=== PATIENT | female | born 2000 | race Caucasian/White ===

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

== ENCOUNTER 2020-04-02 17:33 | Emergency (ER) | payer OTHER ==
--- NOTE | 2020-04-02 17:42 | PDOC ---
Rapid Medical Evaluation Time Seen by Provider: 04/02/20 17:36 Medical Evaluation: Allergies Allergy/AdvReac Type Severity Reaction Status Date / Time No Known Allergies Allergy Verified 09/27/17 02:33 04/02/20 17:42 I have performed a brief in-person evaluation of this patient. CC: nausea and vomiting; 6wks PE: deferred Orders: labs, urine, zofran, saline Patient will proceed to ED for further evaluation. Discharge Disposition - Diagnosis Nausea and vomiting during prior to 22 weeks gestation - Referrals Referrals: Mary Arrieta MD [Primary Care Provider] - - Patient Instructions - Post Discharge Activity
[2020-04-02] MEDS ORDERED: SODIUM CHLORIDE 1,000 ML IV STA (17:46)
[2020-04-02] MEDS ORDERED: ONDANSETRON 4 MG/2 ML VIAL IVPUSH ONE (17:46)
[2020-04-02 17:48] VITALS: BMI 22.4
[2020-04-02 18:17] LABS: PH,URINE 8.5 (5.0-8.0); URINE APPEARANCE Clear; URINE BILIRUBIN Negative (NEGATIVE); URINE COLOR Yellow; URINE GLUCOSE (UA) Negative (NEGATIVE); URINE KETONE 4+ (NEGATIVE); URINE LEUK ESTERASE Negative (NEGATIVE); URINE NITRITE Negative (NEGATIVE); URINE PROTEIN 3+ (NEGATIVE); URINE UROBILINOGEN 0.2 mg/dL (0.2-1.0)
--- NOTE | 2020-04-02 18:22 | PDOC ---
History of Present Illness - General Chief Complaint: Nausea/Vomiting Stated Complaint: 6 WKS PREG/VOMITING/SENT BY DOCTOR Time Seen by Provider: 04/02/20 17:36 - History of Present Illness Initial Comments: 04/02/20 18:33 19 F with 6 weeks presented to the ED with vomiting. Vomitting happened suddenly this morning. NBNB. Happened nonstop ever since. Nothing made it better. She took peptobismo, tylenol and advele 2 hours ago. She denies Headaches, change of vision, diarrhea, consitpiation. chest pain, abdominal kamran n, extremity edema, dysuria, discharge, vaginal bleeding. She endorses nausea, vomitting, shortness of breath. FIELD SERVICE COORDINATOR name is Mary Arrieta at [facility] . PMH: gastritist PSH: none med: none , no vitamin SS: none FH: colon cancer, and heart disease ROS GENERAL/CONSTITUTIONAL: No fever or chills. No weakness. HEAD, EYES, EARS, NOSE AND THROAT: No change in vision. No ear pain or discharge. No sore throat. CARDIOVASCULAR: No chest pain . Shortness of breath RESPIRATORY: No cough, wheezing, or hemoptysis. GASTROINTESTINAL: Nausea, vomiting, no diarrhea or constipation. GENITOURINARY: No dysuria, frequency, or change in urination. MUSCULOSKELETAL: No joint or muscle swelling or pain. No neck or back pain. SKIN: No rash NEUROLOGIC: No headache, vertigo, loss of consciousness, or change in strength/sensation. ENDOCRINE: No increased thirst. No abnormal weight change HEMATOLOGIC/LYMPHATIC: No anemia, easy bleeding, or history of blood clots. ALLERGIC/IMMUNOLOGIC: No hives or skin allergy. PE GENERAL: Awake, alert, and fully oriented, in no acute distress HEAD: No signs of trauma, normocephalic, atraumatic EYES: PERRLA, EOMI, sclera anicteric, conjunctiva clear ENT: Auricles normal inspection, hearing grossly normal, nares patent, oropharynx clear without exudates. Moist mucosa NECK: Normal ROM, supple, no lymphadenopathy, JVD, or masses LUNGS: No distress, speaks full sentences, clear to auscultation bilaterally HEART: Regular rate and rhythm, normal S1 and S2, no murmurs, rubs or gallops, peripheral pulses normal and equal bilaterally. ABDOMEN: Soft, nontender, normoactive bowel sounds. No guarding, no rebound. No masses EXTREMITIES : Normal inspection, Normal range of motion, no edema. No clubbing or cyanosis. NEUROLOGICAL: Cranial nerves II through XII grossly intact. Normal speech, normal gait, no focal sensorimotor deficits SKIN: Warm, Dry, normal turgor, no rashes or lesions noted 04/02/20 18:48 04/02/20 19:00 Past History - Medical History Allergies/Adverse Reactions: Allergies Allergy/AdvReac Type Severity Reaction Status Date / Time No Known Allergies Allergy Verified 04/02/20 17:48 Home Medications: Ambulatory Orders NK [No Known Home Medication] 09/27/17 COPD: No GI Disorders: Yes (GASTRITIS) - Surgical History Appendectomy: Yes - Psycho-Social/Smoking History Smoking History: Never smoked Have you smoked in the past 12 months: No Information on smoking cessation initiated: No - Substance Abuse Hx (Audit-C & DAST Scrn) How often the patient has a drink containing alcohol: Never Score: In Men: 4 or > Positive; In Women: 3 or > Positive: 0 Screen Result (Pos requires Nsg. Audit-10AR): Negative In the last yr the pt used illegal drug/Rx for NonMed reason: No Score: Yes response is considered Positive: 0 Screen Result (Positive result requires Nsg. DAST-10): Negative *Physical Exam - Vital Signs Last Vital Signs Temp Pulse Resp BP Pulse Ox 97.5 F L 58 L 17 90/56 L 100 04/02/20 17:44 04/02/20 17:44 04/02/20 17:44 04/02/20 17:44 04/02/20 17:44 ED Treatment Course - LABORATORY CBC & Chemistry Diagram: 04/02/20 18:00 04/02/20 18:00 Medical Decision Making - Medical Decision Making 04/02/20 18:41 19 F 6 weeks came here for intractable vomiting. For Nausea and vomitting : 1 L of fluid, and zofran For : transvaginal ultrasound to assess for molar mass or ectopic She has never received her first formal ultrasound at her smokehouse operator. Chemistry: CBC, CMP to look for electrolyte abnormality. hCG UA: to look for proteins Differential dx: associated vomiting, ectopic , molar Lab came back normal. For first trimester, it's normal to have leukocytosis. She is a bit dry, but received 2 L of fluid. Repeated vital sign showed improved BP of 110/80. UA reveal proteinuria. This needs to be follow up closely with her smokehouse operator. 04/02/20 21:38 Discharge - Discharge Information Problems reviewed: Yes Clinical Impression/Diagnosis: Nausea and vomiting during prior to 22 weeks gestation Condition: Improved Disposition: HOME - Admission No - Follow up/Referral Referrals: Mary Arrieta MD [Primary Care Provider] - - Patient Discharge Instructions Additional Instructions: You are 6 weeks , came here for vomitting. We did lab work, transvaginal ultrasound, urine analysis. We gave you 2 L of fluids, medication for nausea. If you are experienced worsening symptoms such as blood, or green christel in the vomit, abdominal pain, vaginal bleeding, please come back to the ED. Please make sure you are making an appointment with your Absence Management Consultant Mary Arrieta for protein in urine. - Post Discharge Activity Work/Back to School Note: Back to Work
[2020-04-02 18:36] LABS: BASO % 0.2 % (0-2.0); HEMATOCRIT 40.5 % (32.4-45.2); HEMOGLOBIN 13.4 GM/dL (10.7-15.3); MCH 29.5 pg (25.7-33.7); MCHC 33.2 g/dl (32.0-36.0); MEAN CELL VOLUME 88.8 fl (80-96); MEAN PLT VOLUME 9.2 fl (7.5-11.1); MONO % 2.1 % (3.8-10.2); NEUT % 93.7 % (42.8-82.8); PLATELET COUNT 230 K/MM3 (134-434); RBC 4.56 M/mm3 (3.60-5.2); RDW 13.2 % (11.6-15.6); WHITE BLOOD COUNT 15.9 K/mm3 (4.0-10.0)
[2020-04-02 18:49] LABS: ALBUMIN 4.3 g/dl (3.4-5.0); BILIRUBIN,TOTAL 0.4 mg/dL (0.2-1); BLOOD UREA NITROGEN 11.4 mg/dL (7-18); CALCIUM 10.4 mg/dL (8.5-10.1); CREATININE 0.8 mg/dL (0.55-1.3); POTASSIUM 3.4 mmol/L (3.5-5.1); TOT PROT 7.4 g/dl (6.4-8.2)
[2020-04-02] MEDS ORDERED: SODIUM CHLORIDE 0.9% 500 ML INFUS.BAG IV ONE (19:50)
[2020-04-02 20:11] LABS: PLATELET ESTIMATE ADEQUATE
--- NOTE | 2020-04-02 20:33 | PDOC ---
Documentation entered by Nina Shaw SCRIBE, acting as scribe for Sosa Barone DO. Sosa Barone DO: This documentation has been prepared by the ciraibe, Nina Shaw SCRIBE, under my direction and personally reviewed by me in its entirety. I confirm that the documentation accurately reflects all work, treatment, procedures, and medical decision making performed by me. Attending Attestation - Resident Resident Name: Jono Crowder - ED Attending Attestation I have performed the following: I have examined & evaluated the patient, The case was reviewed & discussed with the resident, I agree w/resident's findings & plan, Exceptions are as noted - HPI HPI: 04/02/20 18:28 Patient is a 19 year old 6 week female with a significant past medical history of gastritist, who presents to the ED with NBNB vomiting since earlier today. Patient stated that the vomit is nonstop and that she cannot keep anything down. Patient disclosed that she self-medicated with tylenol and peptobismal x2 hours ago which only made her symptoms worse. Patient has never had a formal ultrasound or vitamin. Patient stated she still feels nauseous and is experiencing SOB. Patient denies: headache, fever, chills, any vision changes, chest pain, abdominal pain, diarrhea, constipation, dysuria, abnormal discharge, vaginal bleeding, or any edema in extremities. Allergies: NKDA Family history: colon cancer, and heart disease OBGYN: Dr. Mary Arrieta - Physicial Exam PE: 04/02/20 20:29 Gen: aaox3, nad heart: +s1s2 reg lungs: cta b/l abd: soft, nt/nd +bs ext: no c/c/e - Medical Decision Making 04/02/20 20:30 a/p: 19yo female at 6 weeks gestation with n/v today -nbnb vomiting -pt states she ate [employer] steak last night with n/v today -no diarrhea -no abd pain -no vaginal bleeding or discharge -will send labs, tvus for confirmation of IUP -will hydrate, nausea control -will monitor and reassess 04/02/20 20:31 IUP at 6w6d with FHR 144 04/02/20 20:32 beta [id number] 04/02/20 20:32 pt with elevated wbc, could be from first trimester preg vs gastritis no signs/symptoms of infection +ketones in urine ivf hydration running will po challenge prior to dc 04/02/20 21:12 pt feeling better no further vomiting will po challenge 04/02/20 21:40 pt with protein in urine 04/02/20 21:40 no elevated lft normal plts no elevated bp suspect from dehyration, but needs close follow up with [facility] Discharge - Discharge Information Problems reviewed: Yes Clinical Impression/Diagnosis: Nausea and vomiting during prior to 22 weeks gestation Condition: Improved Disposition: HOME - Admission No - Follow up/Referral Referrals: Mary Arrieta MD [Primary Care Provider] - - Patient Discharge Instructions Additional Instructions: You are 6 weeks , came here for vomitting. We did lab work, transvaginal ultrasound, urine analysis. We gave you 2 L of fluids, medication for nausea. If you are experienced worsening symptoms such as blood, or green christel in the vomit, abdominal pain, vaginal bleeding, please come back to the ED. Please make sure you are making an appointment with your Medication Administration Professional Mary Arrieta for a check up. - Post Discharge Activity Work/Back to School Note: Back to Work
[2020-04-02] MEDS ORDERED: ACETAMINOPHEN 1000 MG/100 ML VIAL (NON FORMULARY) IVPB ONE (21:11)
[2020-04-02] MEDS ORDERED: ACETAMINOPHEN INJECTION 100 ML IVPB ONE (21:14)
[2020-04-02 21:33] VITALS: BP 110/55; PULSE 59; TEMP 98.7
[2020-04-02 22:23] LABS: URINE WBC 142.9 /uL (0-25.8)
== END 2020-04-02 21:54 | disposition home or self-care (01) ==
LOC: JER 17:33
PROC: 3E0333Z Introduction of Anti-inflammatory into Peripheral Vein, Percutaneous Approach (ICD-10-PCS; principal; 2020-04-02)
PROC: 3E033GC Introduction of Other Therapeutic Substance into Peripheral Vein, Percutaneous Approach (ICD-10-PCS; 2020-04-02)
PROC: 3E0337Z Introduction of Electrolytic and Water Balance Substance into Peripheral Vein, Percutaneous Approach (ICD-10-PCS; 2020-04-02)
DX: O21.9 Vomiting of pregnancy, unspecified (principal); Z3A.01 Less than 8 weeks gestation of pregnancy
CPT/HCPCS: 36415; 76817-TC; 80053; 81003; 84702; 85025; 87086; 99284-25; J0131